=== PATIENT | male | born 1970 | race Caucasian/White ===

== ENCOUNTER 2020-08-07 17:57 | Emergency (ER) | payer MEDICAID ==
[~2020-08-07] VITALS: Ht 149.9 cm; Wt 76.2 kg
[2020-08-07 18:09] VITALS: Ht 149.9 cm; Wt 76.2 kg
[2020-08-07] MEDS ORDERED: COLACE100 MG PO ×3 (18:50→19:13)
[2020-08-07] MEDS ORDERED: ANUSOL-HC25 MG/SUPP RC ×3 (18:50→19:13)
[2020-08-07] MEDS ORDERED: NAPROXEN375 MG PO ×3 (18:50→19:13)
[2020-08-07 19:05] VITALS: BP 135/70
== END 2020-08-07 19:05 | disposition home or self-care (01) ==
LOC: ED 17:57
DX: K64.8 Other hemorrhoids (principal); E11.9 Type 2 diabetes mellitus without complications